=== PATIENT | male | born 1985 | race Caucasian/White ===

== ENCOUNTER → 2023-01-28 13:54 | Outpatient (BNVA) | payer OTHER, SELFPAY | PROVIDERS: PCP Internal Medicine; Visit Provider Anesthesiology | DX: F11.21 Opioid dependence, in remission (principal); G90.521 Complex regional pain syndrome I of right lower limb; G89.4 Chronic pain syndrome; Z79.899 Other long term (current) drug therapy | CPT/HCPCS: 99202 ==